=== PATIENT | female | born 1945 | race Caucasian/White ===

== ENCOUNTER 2020-06-24 00:12 | Observation (INO) ==
[2020-06-24 01:07] LABS: Basophils # 0.1 K/mcL (0.0-0.2); Basophils % 0.6 %; Bilirubin,Urine Negative (Negative); Blood,Urine Negative (Negative); Calcium Oxalate Crystals,Urine Present; Clarity,Urine Clear (Clear); Color,Urine Dark-Yellow (Yellow); Eosinophils # 0.1 K/mcL (0.0-0.6); Eosinophils % 1.2 %; Glucose,Urine (UA) Normal (Normal); Hematocrit 46.3 % (35.3-44.9); Hemoglobin 15.2 g/dL (11.5-15.4); Hyaline Casts,Urine Few per lpf (None Seen); Immature Granulocytes % 0.4 % (0-4); Ketones,Urine Negative (Negative); Leukocyte Esterase,Urine Trace (Negative); Lymphocytes # 2.8 K/mcL (0.6-4.6); Lymphocytes % 28.1 %; Mean Corpuscular HGB Conc 32.8 g/dL (31.6-35.5); Mean Corpuscular Hemoglobin 32.8 pg (28.0-33.3); Mean Corpuscular Volume 99.8 fL (83.0-100.0); Mean Platelet Volume 10.2 fL (9.4-12.4); Monocytes # 0.7 K/mcL (0.0-1.3); Monocytes % 7.1 %; Mucus,Urine Moderate per lpf (None-Few); Neutrophils # 6.1 K/mcL (1.6-8.9); Nitrite,Urine Negative (Negative); PH,Urine 5.5 pH Units (5.0-8.0); Platelet Count 320 K/mcL (140-400); Protein,Urine 50 mg/dL (Neg-Trace); Red Blood Count 4.64 M/mcL (3.82-4.97); Red Cell Distribution Width 12.4 % (11.5-14.5); Segmented Neutrophils % 62.6 %; Specific Gravity,Urine > 1.030 (1.010-1.025); Squamous Epithelial Cell,Urine Moderate per hpf (None-Few); Urobilinogen,Urine Normal (Normal); White Blood Count 9.8 K/mcL (4.3-11.1)
[2020-06-24 01:29] LABS: Alanine Aminotransferase 23 Units/L (7-52); Albumin 4.3 g/dL (3.5-5.7); Albumin/Globulin Ratio 1.7 (1.1-2.2); Alkaline Phosphatase 96 Units/L (34-104); Aspartate Amino Transferase 17 Units/L (13-39); BUN/Creatinine Ratio 22 (6-26); Bilirubin,Indirect 0.3 mg/dL (0.0-1.0); Bilirubin,Total 0.3 mg/dL (0.3-1.0); Blood Urea Nitrogen 20 mg/dL (8-23); Calcium 10.9 mg/dL (8.6-10.3); Carbon Dioxide 29 mEq/L (23-29); Chloride 103 mEq/L (98-107); Globulin 2.6 g/dL (2.4-3.5); Glucose 132 mg/dL (70-105); Lipase 47 Units/L (11-82); Osmolality,Calculated 296 (280-300); Potassium 4.3 mEq/L (3.5-5.1); Sodium 141 mEq/L (136-145); Total Protein 6.9 g/dL (6.4-8.9); Troponin I < 0.03 ng/mL (< 0.04); eGFR For African Americans > 60 (> 60); eGFR For Non-African Americans > 60 (> 60)
[2020-06-24] MEDS ORDERED: Isovue-370 500 ML BOTTLE IVP ONE ×2 (01:37→01:43)
[2020-06-24] MEDS ORDERED: Ondansetron 4 MG/2 ML VIAL IVP ONE ×2 (01:45→07:21)
[2020-06-24] MEDS ORDERED: Morphine Sulfate 2 MG/ML SYRINGE IVP ONE (01:45)
[2020-06-24] MEDS ORDERED: 0.9 % Sodium Chloride 1,000 ML IVC ONE (05:53)
[2020-06-24] MEDS ORDERED: Ondansetron 4 MG/2 ML VIAL IVP PRN (07:44)
[2020-06-24] MEDS ORDERED: *HR* HYDROcodone/Acet 5/325 mg TABLET PO PRN (07:44)
[2020-06-24] MEDS ORDERED: Naloxone 0.4 MG/ML INJ IVP PRN (07:44)
[2020-06-24] MEDS ORDERED: 0.9 % Sodium Chloride 1,000 ML IVC SCH (07:45)
[2020-06-24] MEDS ORDERED: cefTRIAXone 1,000 MG in Water for inj. (sterile) 10 ML IVP SCH (09:00)
[2020-06-24] MEDS ORDERED: *HR* LORazepam 1 MG TABLET PO PRN (09:01)
[2020-06-24] MEDS: Pantoprazole 40 MG VIAL IVP SCH (10:28)
[2020-06-24] MEDS: lisinopriL 5 MG TABLET PO SCH (20:35)
[2020-06-25 02:55] LABS: Magnesium 1.9 mg/dL (1.6-2.6); Phosphorous 2.8 mg/dL (2.7-4.5)
[2020-06-25] MEDS ORDERED: *HR* Enoxaparin 40 MG/0.4 ML SYRINGE SQ SCH (06:00)
[2020-06-25] MEDS: lisinopriL 5 MG TABLET PO SCH (07:41)
[2020-06-25] MEDS: Pantoprazole 40 MG VIAL IVP SCH (07:41)
[2020-06-25 08:23] VITALS: BP 118/66
[2020-06-25] MEDS ORDERED: lisinopriL 5 MG TABLET PO SCH (09:00)
== END 2020-06-25 11:25 | disposition home or self-care (01) ==
LOC: EMEROOARM 00:12 → 3ANU 00:12 → SUATTDRO 07:51 → 3ANU 08:51
PROVIDERS: ADMIT Internal Medicine; ATTEND Internal Medicine